=== PATIENT | female | born 1960 | race Caucasian/White ===

== ENCOUNTER 2022-02-19 21:04 | Emergency (ER) | payer MEDICARE, BC ==
[2022-02-19] MEDS ORDERED: Ibuprofen 200 MG TAB ONE (21:35)
== END 2022-02-19 23:51 | disposition home or self-care (01) ==
LOC: ERS 21:04
DX: U07.1 COVID-19 (principal); J12.82 Pneumonia due to coronavirus disease 2019
CPT/HCPCS: 71045; 99283; U0003; U0005